=== PATIENT | female | born 2000 | race Caucasian/White ===

== ENCOUNTER 2023-06-17 14:48 | Outpatient (REF) | payer MEDICAID, SELFPAY ==
[2023-06-17 18:37] LABS: Cholesterol 135 mg/dL; HDL Cholesterol 57 mg/dL; LDL Cholesterol Calculated 70 mg/dl; Triglycerides 41 mg/dL
[2023-06-18 02:34] LABS: CT PCR NOT DETECTED (Not Detect.); NG PCR NOT DETECTED (Not Detect.)
[2023-06-18 07:47] LABS: Syphilis Screen Nonreactive (Nonreactive)
[2023-06-18 09:01] LABS: HBsAGNum1 0.44 S/CO (0.00-0.99); Hepatitis B Surface Antigen Negative (Negative); ~HepC Num1 0.13 S/CO (0.00-0.79); ~Hepatitis C Antibody Nonreactive (Nonreactive)
== END 2023-06-17 14:49 | disposition home or self-care (01) ==
LOC: HO.CHCLDS 14:48
PROVIDERS: Visit Provider Family Medicine
DX: Z11.3 Encounter for screening for infections with a predominantly sexual mode of transmission (principal); Z11.4 Encounter for screening for human immunodeficiency virus [HIV]; Z13.220 Encounter for screening for lipoid disorders
CPT/HCPCS: 0353U; 36415; 80061; 86780; 86803; 87340; 87536

== ENCOUNTER 2023-08-06 13:14 | Outpatient (REF) | payer MEDICAID, SELFPAY ==
[2023-08-07 05:23] LABS: CT PCR NOT DETECTED (Not Detect.); NG PCR NOT DETECTED (Not Detect.)
[2023-08-07 15:37] LABS: BV Int Neg Control Negative (Negative); BV Int Pos Control Positive (Positive)
== END 2023-08-06 13:15 | disposition home or self-care (01) ==
LOC: HO.CHCLNP 13:14
PROVIDERS: Visit Provider Family Medicine
DX: N76.0 Acute vaginitis (principal)
CPT/HCPCS: 0353U; 81513; 87480; 87510; 87660

== ENCOUNTER 2023-10-07 18:02 | Outpatient (REF) | payer MEDICAID, SELFPAY ==
[2023-10-30 09:38] LABS: HPV 16 RNA NOT DETECTED (NOT DETECTED); HPV mRNA E6/E7 rflx Detected (Not Detected)
== END 2023-10-07 18:03 | disposition home or self-care (01) ==
LOC: HO.CHCLNP 18:02
PROVIDERS: Visit Provider Family Medicine
DX: Z12.4 Encounter for screening for malignant neoplasm of cervix (principal); Z11.51 Encounter for screening for human papillomavirus (HPV)
CPT/HCPCS: 87624; 87625; 88142

== ENCOUNTER 2023-10-19 13:30 | Outpatient (REF) | payer MEDICAID, SELFPAY ==
[2023-10-19 17:19] LABS: CT PCR NOT DETECTED (Not Detect.); NG PCR NOT DETECTED (Not Detect.)
== END 2023-10-19 13:31 | disposition home or self-care (01) ==
LOC: HO.CHCLNP 13:30
PROVIDERS: Visit Provider Advanced Practice Midwife
DX: Z11.3 Encounter for screening for infections with a predominantly sexual mode of transmission (principal)
CPT/HCPCS: 0353U

== ENCOUNTER 2023-10-22 13:40 | Outpatient (REF) | payer MEDICAID, SELFPAY ==
[2023-10-22 15:11] LABS: Alanine Aminotransferase 10 U/L (0-31); Albumin Level 4.3 g/dL (3.5-5.0); Alkaline Phosphatase 49 U/L (39-117); Aspartate Amino Transferase 15 U/L (5-31); Bilirubin Direct 0.1 mg/dL (0.0-0.5); Bilirubin Total 0.3 mg/dL (0.0-1.0); Lipase 26 U/L (8-78); Total Protein 7.5 g/dL (6.5-8.0)
[2023-10-22 18:33] LABS: Amylase 62 U/L (28-100)
[2023-10-23 07:59] LABS: HCG Tumor Marker <5 mIU/mL
== END 2023-10-22 13:41 | disposition home or self-care (01) ==
LOC: HO.CHCLDS 13:40
PROVIDERS: Visit Provider Registered Nurse
DX: R10.11 Right upper quadrant pain (principal)
CPT/HCPCS: 36415; 80076; 82150; 83690; 84702

== ENCOUNTER 2023-11-23 14:52 | Outpatient (REF) | payer MEDICAID, SELFPAY ==
[2023-11-24 15:31] LABS: BV Int Neg Control Negative (Negative); BV Int Pos Control Positive (Positive)
== END 2023-11-23 14:53 | disposition home or self-care (01) ==
LOC: HO.CHCLNP 14:52
PROVIDERS: Visit Provider Advanced Practice Midwife
DX: N89.8 Other specified noninflammatory disorders of vagina (principal)
CPT/HCPCS: 87480; 87510; 87660

== ENCOUNTER 2024-02-02 08:55 | Outpatient (REF) | payer MEDICAID, SELFPAY ==
[2024-02-04 19:53] LABS: C. trachomatis RNA TMA NOT DETECTED (NOT DETECTED); N. gonorrhoeae RNA TMA NOT DETECTED (NOT DETECTED)
== END 2024-02-02 08:56 | disposition home or self-care (01) ==
LOC: HO.HHCLNP 08:55
PROVIDERS: Visit Provider Family Medicine
DX: R10.2 Pelvic and perineal pain (principal)
CPT/HCPCS: 36415; 81513; 87491; 87591

== ENCOUNTER 2024-03-20 10:33 | Outpatient (REF) | payer MEDICAID, SELFPAY ==
--- NOTE | ~2024-03-20 | US_ITS ---
EXAMINATION: US PELVIS CLINICAL INFORMATION: Pelvic pain, last menstrual period 02/06/2024. COMPARISON: None available. TECHNIQUE: Ultrasound of the pelvis is performed using both transabdominal and transvaginal transducers along with Doppler. Transvaginal imaging is performed due to inadequate visualization transabdominally. Limited visualization due to bowel gas. FINDINGS: The uterus measures 7.9 x 3.3 x 4.6 cm and is anteverted. Endometrial thickness is 7 mm. Right ovary measures 3.9 x 3.0 x 2.4 cm, volume 14.7 mm. 2.3 x 2.0 x 2.3 cm right ovarian cyst is likely simple. 1.8 x 1.7 x 1.6 cm mildly complex right ovarian cyst with mural nodularity and low level internal echoes is somewhat difficult to characterize due to bowel gas. Left ovary measures 3.4 x 1.6 x 2.2 cm, volume 6.3 mL and is unremarkable. Small amount of free fluid. US/US pelvic and transvaginal IMPRESSION: 1. Endometrial thickness is 7 mm. 2. Right ovarian 2.3 cm cyst is likely simple. 3. Right ovarian 1.8 cm mildly complex cyst with mural nodularity and low level internal echoes is somewhat difficult to characterize due to bowel gas. Recommend follow up ultrasound in 6-8 weeks. 4. Small amount of free fluid.
== END 2024-03-20 10:34 | disposition home or self-care (01) ==
LOC: HO.US 10:33
PROVIDERS: Visit Provider Family Medicine
DX: R10.2 Pelvic and perineal pain (principal)
CPT/HCPCS: 76830; 76856

== ENCOUNTER 2024-06-15 10:15 | Emergency (ER) | payer MEDICAID, SELFPAY ==
[2024-06-15 10:20] VITALS: BP 122/77; PULSE 107; RESP 16; TEMP 37.1; O2SAT 98; BMI 19.2
--- OUTSIDE RECORDS SUMMARY | 2024-06-15 10:42 | XMS_ITS | Continuity of Care Document ---
Author Organization [facility] ter Address [address] [place] [id number]- Care Team Providers Care Canine Enforcement Officer Name Role Phone Not on Staff, PCP Primary Care Physician Unavail able Encounter [facility] Date(s): 10/07/22 - 10/07/[address] [address]- Encounter Diagnosis Lightheadedness(Final) - 10/07/22 Discharge Disposition: A-D/C Home Attending Physician: Lou Vargas MD Admitting Physician: Lou Vargas MD Referring Physician: Not on Staff, Referring MD Allergies, Adverse Reactions, Alerts No Known Allergies Medications ibuprofen 600 mg oral tablet 600 mg, 1, tablet, By Mouth, 3 times a day, PRN, then as needed, # 30 tablet, Refills 0, Tot. Refills 0, Maintenance, Pain , Mild, 07/20/19 13:52:47 EDT, Print Requisition Start Date: 07/20/19 Stop Date: 07/23/19 Status: Ordered KlonoPIN 0.5 mg oral tablet 0.5 tablet = 0.25 mg, By Mouth, Daily at bedtime, PRN Sleep, 0 Refills, Maintenance, 07/20/19 13:36:22 EDT, Tablet Start Date: 07/20/19 Status: Ordered Vital Signs Most recent to oldest [Reference Range]: 1 2 3 Weight 43.6 kg (10/07/22 7:53 PM) Oxygen Saturation [94-100 %] 98 % (10/07/22 11:48 PM) 100 % (10/07/22 9:45 PM) 100 % (10/07/22 8:54 PM) Pulse Rate [55-90 bpm] 90 bpm (10/07/22 11:48 PM) 84 bpm (10/07/22 9:45 PM) 84 bpm (10/07/22 8:54 PM) Blood Pressure [90-138/55-84 mm Hg] 109/75mm Hg (10/07/22 11:48 PM) 128/83mm Hg (10/07/22 9:45 PM) 114/88mm Hg (10/07/22 7:53 PM) Respiratory Rate [16-30 br/min] 16 br/min (10/07/22 11:48 PM) 16 br/min (10/07/22 9:45 PM) 18 br/min (10/07/22 8:54 PM) Temperature [96.8-100.4 DegF] 98.8 DegF (10/07/22 7:53 PM) Mode of Delivery (Oxygen) Room air (10/07/22 11:48 PM) Room air (10/07/22 9:45 PM) Room air (10/07/22 8:54 PM) Blood pressure sites Arm, left (10/07/22 11:48 PM) Arm, left (10/07/22 9:45 PM) Arm, left (10/07/22 7:53 PM) Temperature Route Oral (10/07/22 7:53 PM) Weight Obtained Via Patient/family state d (10/07/22 7:53 PM) Social History Social History Type Response Smoking Status Former smoker, quit more than 30 days ago entered on: 03/29/22 Sex Patient Care team information Care Team Personnel Name: Not on Staff, PCP Position: [facility] Physician (General Medicine) Member Role: PCP Name: Carly Howe RN Position: [facility] ED RN W/OE and Tasks Member Role: Patient Care Provider Name: Travis Martinez DO Position: [facility] Resident Member Role: ED Resident Address: Address: [address] [place] [address] Name: Lou Vargas MD Position: [facility] Resident Member Role: Admitting Physician Address: Address: [address] [place] [address]
--- NOTE | 2024-06-15 11:30 | ED.GENADULT ---
HPI - General Adult General Chief complaint: General Medical Stated complaint: strep+ Time Seen by Provider: 06/15/24 10:55 Source: patient Mode of arrival: ambulatory Limitations: no limitations History of Present Illness ED Provider: Tangela YO HPI narrative: 23-year-old female recently diagnosed with strep throat a few days ago on antibiotics x2 days presenting with worsening sore throat, fatigue, malaise, myalgias. Patient reports she was seen at urgent care a few days ago and she was prescribed amoxicillin 500 mg which she is taking twice daily, she is having pain in her throat and into her neck, she was told to come in by the [facility] for further evaluation. Denies shortness of breath, changes in voice, nausea, vomiting, chest pain, headache, vision changes, dizziness, weakness. Related Data Previous Rx's ?Medication ?Instructions ?Recorded Magic Mouthwash 5 ml PO TID #240 mL 06/15/24 Diphen/Lido/Antacid 1:1:1 240 mL suspension amoxicillin 875 mg-potassium 1 tab PO BID 10 days #20 tabs 06/15/24 clavulanate 125 mg tablet prednisone 20 mg tablet 40 mg (2 x 20 mg) PO DAILY 5 days 06/15/24 #10 tabs Allergies Allergy/AdvReac Type Severity Reaction Status Date / Time No Known Allergies Allergy Verified 06/15/24 10:20 Review of Systems Review of Systems: Yes all other systems are reviewed and are negative PMFSH Past Medical History Attestation statement: The following information was validated with the patient. Source: old records reviewed and nursing notes reviewed Social History Social History Advance Directives: No Advance Directives Information Provided: No Do you have a plan to hurt others: No Plan Physical Exam ED Vital Signs: Vital Signs - 24 hr 06/15/24 10:20 06/15/24 12:08 Temperature 98.7 F 98.1 F Pulse Rate 107 H 96 Respiratory Rate 16 16 Blood Pressure 122/77 118/72 Pulse Oximetry 98 98 Oxygen Delivery Method Room Air Room Air BMI result Body Mass Index 19.2 vss Appearance: Alert.? Oriented X3.? No acute distress.? Head: Normocephalic, atraumatic, no step-offs or deformities Eyes: Pupils equal, round and reactive to light.? ENT: Pharynx with bilateral tonsillar hypertrophy equal on both sides, exudates bilaterally. Uvula midline. No visualized abscess. Speaking in full sentences controlling secretions well.? Neck: Normal inspection.? Neck supple.?+ bilateral anterior cervical adenopathy CVS: Normal heart rate and rhythm.? Pulses normal.? Respiratory: No respiratory distress.? Breath sounds normal.? Abdomen: Soft and nontender.? Skin: Skin warm and dry.? Normal skin color.? Normal skin turgor.? Extremities: No lower extremity edema.? No calf ttp. 5/5 strength to bilateral upper and lower extremities Neuro: Oriented X 3.? No motor deficit.? No sensory deficit. CN 2-12 intact Course Reevaluation(s) Reevaluation #1: CBC unremarkable. There is a neutrophil predominance likely secondary to acute pharyngitis/strep throat. Patient has known strep throat diagnosed a few days ago. Chemistry unremarkable. CRP 1.33 likely secondary to acute pharyngitis/strep. Monospot negative. Patient feeling better after meds. Will have her return with new or worsening symptoms will switch her from amoxicillin to Augmentin. Educated patient on diagnosis and treatment plan, answered all question, patient verbalizes understanding. At this time patient will be discharged home, advised to return with new or worsening symptoms. Educated on worrisome signs and symptoms and when to return. At this time I feel comfortable discharge home. Time: 12:54 Medications Administered Discontinued Medications Generic Name Dose Route Start Last Admin Trade Name Freq PRN Reason Stop Dose Admin Dexamethasone Sodium Phosphate 10 mg 06/15/24 11:16 06/15/24 11:48 Dexamethasone Sod Phosphate 10 Mg/Ml Vial IVPUSH 06/15/24 11:17 10 mg ONCE ONE Administration Lidocaine HCl 10 ml 06/15/24 11:06 06/15/24 11:48 Lidocaine Hcl Viscous 2 % 15 Ml Solution MUCOUS MEM 06/15/24 11:07 10 ml ONCE ONE Administration Medical Decision Making Medical Decision Making MDM Narrative: 23-year-old female presents with sore throat going on for the past few days has been on antibiotics x2 days. Physical exam with anterior chain adenopathy bilaterally, bilateral tonsillar hypertrophy with exudate, no abscess. History and physical exam concerning for strep throat and possibly mono versus viral illness. Unlikely peritonsillar abscess, retropharyngeal abscess, epiglottitis, acute threat to airway, leimeers syndrome Plan labs, medication Differential Diagnosis Differential Diagnoses: The differential diagnosis associated with the presentation includes History and physical exam concerning for strep throat and possibly mono versus viral illness. Unlikely peritonsillar abscess, retropharyngeal abscess, epiglottitis, acute threat to airway, leimeers syndrome Admission/Observation Consideration of admission/observation: Escalation of care including admission/observation considered possible Lab Data MDM Lab Attestation statement: I reviewed the patient's lab results. 06/15/24 11:40 06/15/24 11:40 Labs: Lab Results 06/15/24 Range/Units 11:40 WBC 8.1 (4.8-10.8) X10*3/uL RBC 4.69 (4.20-5.50) X10*6/uL Hgb 14.9 (12.0-16.0) g/dl Hct 42.5 (37.0-47.0) % MCV 90.6 (80.0-98.0) fL MCH 31.8 (27.0-33.0) pg MCHC 35.1 H (31.0-35.0) g/dl RDW 12.1 (11.0-16.0) % Plt Count 220 (160-400) X10*3/uL MPV 10.3 (9.4-12.3) fL Immature Gran % (Auto) 0.2 (0.0-0.4) % Neut % (Auto) 82.6 H (45-73) % Lymph % (Auto) 9.5 L (20-40) % Mckean % (Auto) 7.4 (2-11) % Eos % (Auto) 0.1 (0-4) % Baso % (Auto) 0.2 (0-2) % Lymph # (Auto) 0.8 L (1.2-4.9) X10*3/uL Mckean # (Auto) 0.6 (0.1-1.2) X10*3/uL Eos # (Auto) 0.0 (0.0-0.4) X10*3/uL Baso # (Auto) 0.0 (0.0-0.2) X10*3/uL Abs Immat Gran (auto) 0.02 (0.00-0.03) X10*3/uL Absolute Neuts (auto) 6.7 (2.0-8.3) x10*3/uL Absolute Nucleated RBC 0.000 (0.0-0.012) X10*3/uL Nucleated RBC % (auto) 0.0 (0.0-0.2) /100WBC ESR 9 (0-20) MM/HR Sodium 137 (135-145) mmol/L Potassium 3.9 (3.3-5.1) mmol/L Chloride 107 (96-108) mmol/L Carbon Dioxide 22 (22-29) mmol/L Anion Gap 12 (12-20) BUN 11 (9-16) mg/dL Creatinine 0.72 (0.5-1.4) mg/dL Estim Creat Clear Calc 92.9 Estimated GFR > 60 Random Glucose 87 (60-115) mg/dL Calcium 9.5 (8.4-10.2) mg/dL Total Bilirubin 0.6 (0.0-1.0) mg/dL AST 15 (5-31) U/L ALT 10 (0-31) U/L Alkaline Phosphatase 56 (39-117) U/L C-Reactive Protein 1.33 H (< or = 0.50) mg/dL Total Protein 7.6 (6.5-8.0) g/dL Albumin 4.2 (3.5-5.0) g/dL Monoscreen Negative (Negative) Prescription Management I considered prescription management with: Antibiotic Critical Care Time Critical Care Time Critical Care Time: Yes Total Critical Care Time: 35 Attestation: I attest to this time spent taking care of the patient, obtaining history, physical, reviewing labs, imaging, speaking to my attending, specialist or hospitalist. Discharge Plan Discharge Clinical Impression: Strep throat Patient Disposition: Home, Self-Care Instructions: Pharyngitis (ED), Strep Throat (ED) Additional Instructions: Take your medications as prescribed. If you were prescribed antibiotics today, it is important that you take your medication to their entirety, do not skip any doses, do not finish them early. Follow-up with your primary care provider this week. Return to the emergency department with new or worsening symptoms. Such as fevers, chills, chest pain, shortness of breath, nausea, vomiting, dizziness, headache, vision changes, lethargy In case of emergency call 911 Prescriptions: New prednisone 20 mg tablet 40 mg PO DAILY 5 Days Qty: 10 0RF amoxicillin-pot clavulanate 875-125 mg tablet 1 tab PO BID 10 Days Qty: 20 0RF Magic Mouthwash Diphen/Lido/Antacid 1:1:1 240 mL suspension 5 ml PO TID Qty: 240 0RF Rx Instructions: Lidocaine Viscous 2 % 80mL; diphenhydramine 12.5 mg/5 mL 80mL; aluminum-mag hydrox-simeth [id number]/5mL 80mL Swish and spit, do not swallow Referrals: Janette Posey MD [Primary Care Provider] - 2 days Stand Alone Forms: Work/School Release Interventions: ED Discharge Assessment Last Done: 06/15/24 12:08 Discharge Date/Time: 06/15/24 12:08 Print Language: Ukrainian
[2024-06-15 11:44] LABS: MANUAL DIFF FLAG NO
[2024-06-15 11:47] LABS: Basophils Percent Auto 0.2 % (0-2); Eosinophils Percent Auto 0.1 % (0-4); Hematocrit 42.5 % (37.0-47.0); Hemoglobin 14.9 g/dl (12.0-16.0); Imm Gran Abs Auto 0.02 X10*3/uL (0.00-0.03); Imm Gran Pct Auto 0.2 % (0.0-0.4); Lymphocytes Absolute Auto 0.8 X10*3/uL (1.2-4.9); Lymphocytes Percent Auto 9.5 % (20-40); Mean Corpuscular HGB Conc 35.1 g/dl (31.0-35.0); Mean Corpuscular Hemoglobin 31.8 pg (27.0-33.0); Mean Corpuscular Volume 90.6 fL (80.0-98.0); Mean Platelet Volume 10.3 fL (9.4-12.3); Monocytes Absolute Auto 0.6 X10*3/uL (0.1-1.2); Monocytes Percent Auto 7.4 % (2-11); Neutrophils Absolute Auto 6.7 x10*3/uL (2.0-8.3); Neutrophils Percent Auto 82.6 % (45-73); Platelet Count 220 X10*3/uL (160-400); Red Blood Count 4.69 X10*6/uL (4.20-5.50); Red Cell Distribution Width 12.1 % (11.0-16.0); White Blood Count 8.1 X10*3/uL (4.8-10.8)
[2024-06-15] MEDS: Lidocaine HCl Viscous 2 % 15 ML SOLUTION 10 ML MUCOUS MEM (11:48)
[2024-06-15] MEDS: dexAMETHasone sod phosphate 10 MG/ML VIAL IVPUSH (11:48)
--- NOTE | 2024-06-15 11:50 | PC.NURSE ---
pt medicated per order
[2024-06-15 12:03] LABS: Alanine Aminotransferase 10 U/L (0-31); Albumin Level 4.2 g/dL (3.5-5.0); Alkaline Phosphatase 56 U/L (39-117); Anion Gap 12 (12-20); Aspartate Amino Transferase 15 U/L (5-31); Bilirubin Total 0.6 mg/dL (0.0-1.0); Blood Urea Nitrogen 11 mg/dL (9-16); C Reactive Protein 1.33 mg/dL (< or = 0.50); Calcium 9.5 mg/dL (8.4-10.2); Carbon Dioxide 22 mmol/L (22-29); Chloride 107 mmol/L (96-108); Creatinine Clr Calc Pharmacy 92.9; Estimated Glomerular Filt Rate > 60; Glucose Random 87 mg/dL (60-115); Monotest Negative (Negative); Potassium 3.9 mmol/L (3.3-5.1); Sodium 137 mmol/L (135-145); Total Protein 7.6 g/dL (6.5-8.0)
--- NOTE | 2024-06-15 12:07 | PC.NURSE ---
pt medicated per order for 5/10 sore throat
[2024-06-15 12:08] VITALS: BP 118/72; PULSE 96; RESP 16; TEMP 36.7; O2SAT 98
[2024-06-15 12:21] LABS: Erythrocyte Sedimentation Rate 9 MM/HR (0-20)
== END 2024-06-15 12:08 | disposition home or self-care (01) ==
PROVIDERS: Physician Assistant; Emergency Provider Emergency Medicine; PCP Family Medicine
DX: J02.0 Streptococcal pharyngitis (principal); Z79.899 Other long term (current) drug therapy
CPT/HCPCS: 36415; 80053; 85025; 85652; 86140; 86308; 99282; 99283; J1100

== ENCOUNTER 2024-07-10 09:39 | Outpatient (REF) | payer MEDICAID, SELFPAY ==
[2024-07-10 16:12] LABS: CT PCR NOT DETECTED (Not Detect.); NG PCR NOT DETECTED (Not Detect.)
[2024-07-11 08:48] LABS: Syphilis Screen Nonreactive (Nonreactive)
[2024-07-11 08:55] LABS: HIV AB/AG Nonreactive (Nonreactive); HIV Num 1 0.06 S/CO (0.00-0.99); ~HepC Num1 0.21 S/CO (0.00-0.79); ~Hepatitis C Antibody Nonreactive (Nonreactive)
== END 2024-07-10 09:40 | disposition home or self-care (01) ==
LOC: HO.CHCLDS 09:39
PROVIDERS: Visit Provider Family Medicine
DX: Z11.3 Encounter for screening for infections with a predominantly sexual mode of transmission (principal)
CPT/HCPCS: 36415; 86780; 86803; 87389; 87491; 87591

== ENCOUNTER 2024-07-13 16:29 | Outpatient (REF) | payer MEDICAID, SELFPAY ==
[2024-07-13 18:41] LABS: Bacterial Vaginosis PCR POSITIVE (Negative); Candida Group PCR NOT DETECTED (Not Detect); Candida glab krusei PCR NOT DETECTED (Not Detect); Trichomonas vaginalis PCR NOT DETECTED (Not Detect)
== END 2024-07-13 16:30 | disposition home or self-care (01) ==
LOC: HO.CHCLNP 16:29
PROVIDERS: Visit Provider Family Medicine
DX: N76.0 Acute vaginitis (principal)
CPT/HCPCS: 0352U

== ENCOUNTER 2024-11-07 15:12 | Outpatient (REF) | payer MEDICAID, SELFPAY ==
[2024-11-08 08:25] LABS: HIV AB/AG Nonreactive (Nonreactive); HIV Num 1 0.06 S/CO (0.00-0.99)
== END 2024-11-07 15:13 | disposition home or self-care (01) ==
LOC: HO.CHCLDS 15:12
PROVIDERS: Visit Provider Internal Medicine
DX: J02.9 Acute pharyngitis, unspecified (principal)
CPT/HCPCS: 36415; 87389; 87491; 87591

== ENCOUNTER 2025-03-05 18:08 | Outpatient (REF) | payer MEDICAID, SELFPAY ==
--- OUTSIDE RECORDS SUMMARY | 2025-03-05 18:41 | XMS_ITS | Data Portability ---
Author Organization [place] - [facility], Allergy Address [address] [facility] [address] [place] [address] Care Team Providers Care Body Specialist Name Role Phone KING SALAZAR Primary Care Provider [phone] Assessment No assessment recorded. Plan of Treatment Reminders Order Date Submit Date Provider Last Modified By Organization Details Last Modified Time Details Appointments None recorded. Lab None recorded. Referral None recorded. Procedures None recorded. Surgeries tonsillect damian (SURG) 2024 025 [email or web address] Not available 12:31:51 Imaging None recorded. Medication Orders None recorded. Patient TargetsNo targets recorded. Patient InstructionsNo instructions recorded. Reason for Referral None Reported. Results Created Date Observation Date Name Description Value Unit Range Abnormal Flag Note LastModifiedBy Organization Detail LastModifiedTime Result Notes None recorded. Problems Name Problem SNOMED Code Status Onset Date Resolution Date Notes Provider Name and Address Organization Details Recorded Time Recurrent acute streptococc al tonsillitis 8985612000190 9109 Active 2024 AILEEN Martinez MD [address] [place] [address], [phone], [facility] - [facility] 5 11:52:48 Chronic tonsillitis 21436368 Active 2024 AILEEN Martinez MD [address] [place] [address], [phone], [facility] - [facility] 5 11:58:23 Problem Notes None recorded. Procedures Surgical History Date Name Laterality Status Provider Name and Address Organization Details Recorded Time 12/26/19 25 tonsillectomy completed AILEEN HANLEY MD [address], [address], [place] - [facility] 12/26/2024 14:35:25 12/26/19 25 TONSILLECTOMY (SURG) completed Jareth Rice [place] - [facility] 12/26/2024 16:01:27 Imaging Results None recorded. Procedure Notes None recorded. Medical Equipment None Reported. Medications Name Sig Start Date Stop Date Status Note LastModified by Organization Details LastModified Time amoxicillin 500 mg capsule TAKE 1 CAPSULE BY MOUTH TWICE A DAY FOR 10 DAYS active Not Available Not Available No t Available acetaminophe n 325 mg tablet TAKE 2 TABLETS EVERY 6 HOURS BY ORAL ROUTE NEEDED FOR 7 DAYS, FOR PAIN. active Not Available Not Available No t Available fluconazole 150 mg tablet TAKE 1 TABLET (150 MG) BY MOUTH EVERY 3RD (THIRD) DAY. active Not Available Not Available No t Available prednisone 20 mg tablet TAKE 2 TABLETS BY MOUTH ONCE DAILY FOR 5 DAYS active Not Available Not Available No t Available oxycodone 5 mg/5 mL oral solution TAKE 4ML BY MOUTH EVERY 6 HOURS NEEDED FOR PAIN FOR 5 DAYS active Not Available Not Available No t Available metronidazol e 500 mg tablet TAKE 1 TABLET BY MOUTH 2 TIMES DAILY FOR 7 DAYS active Not Available Not Available N ot Available ofloxacin 0.3 % ear drops ADMINISTER 5 DROPS INTO THE RIGHT EAR 2 TIMES DAILY FOR 5 DAYS. active Not Available Not Available Not Available diclofenac potassium 50 mg tablet TAKE 1 TABLET BY MOUTH 3 TIMES DAILY active Not Available Not Available Not Available ibuprofen 600 mg tablet TAKE 1 TABLET BY MOUTH THREE TIMES A DAY FOR 5 DAYS active Not Available Not Available N ot Available ibuprofen 100 mg/5 mL oral suspension TAKE 30 ML BY MOUTH 4 TIMES PER DAY FOR 7 DAYS active Not Available Not Available No t Available amoxicillin 875 mg-potassium clavulanate 125 mg tablet TAKE 1 TABLET BY MOUTH TWICE DAILY FOR 10 DAYS active Not Available Not Available No t Available Monistat 3 4 % (200 mg)-2 %(9 gram)vaginal pack,prefil appl and cream INSERT 1 EACH INTO THE VAGINA AT BEDTIME. active Not Available Not Available Not Available Tylenol 325 mg capsule Take 2 capsules every 6 hours by oral route as needed for 7 days, for pain. 2024 active Not Available Not Available Not Avai lable Vitals Date Recorded Body height Body mass index (BMI) Body weight Provider Name and Address Organization Details Last Updated DateTime 12/19/2024 157.48 cm 19.2 kg/m2 93828.2 g Marc Balderrama [place] - [facility] 12/19/2024 11:52:23 Social History None recorded. Functional Status None recorded. Mental Status None recorded. Family History Nothing Reported. Medical History No medical history recorded. Gynecological HistoryNo gynecological history recorded. Obstetrics History GPAL:G 0 P 0 0 0 0 Past Encounters Encounter ID Performer Location Encounter Start Date Encounter Closed Date Diagnosis/Indication Diagnosis SNOMED-CT Code Diagnosis ICD10 Code Diagnosis Note [id number] AILEEN HANLEY MD [facility] [address] [place] [address] 12/19/2024 11:28:14 12/19/2024 11:57:48 Recurrent acute streptococcal tonsillitis [id number] 1930913 J03.01 The patient has recurrent strep tonsilliti s and is indicated for tonsillect damian. After a detailed discussion of the risks, benefits and alternativ es to tonsillect damian the patient and family has agreed to proceed. Specifical ly, the risk of postoperat ortega hemorrhage with return to the operating room, dehydratio n and risk of hospital readmissio n, throat pain, voice change and or swallowing problems were discussed. The patient will return the day of surgery. Health Concerns Section Related Observation LastModified by Organization Detai ls LastModified Time None Recorded Concern Status LastModified by Organization Details LastModified Time None Recorded Advance Directives Directive None Recorded Payers Encounter Date Sequence Insurance Name Policy Number Policy Soto Covered Member ID Soto Member ID Guarantor Name 12/19/2024 1 [place] [facility] Melinda Oconnor [id number] Miley Oconnor Notes Date Note Type Note Provider Name and Address Organization Details Recorded Time 12/19/2024 text/html She has a history of recurring throat infections. She has had both mono and strep in the last year. For the past 3 years she has had strep throat about 4 times per year. Her right tonsil has remained swollen since her last infection. She does not snore. AILEEN HANLEY MD [address] [place] [address], [place], [phone], [facility] - [facility] 12/19/2024 12:01:03 OBGyn Episode No OBEpisode recorded.
--- OUTSIDE RECORDS SUMMARY | 2025-03-05 18:41 | XMS_ITS | Encounter Summary ---
Author Organization [employer] Address [address] [place] [address] Care Team Providers Care Jewelry Inspector Name Role Phone Janette Posey MD Primary Care Provider [phone] Encounter Details Date Type Department Care Team (Latest Contact Info) Description 03/05/2025 Travel Social History Tobacco Use Types Packs/Day Years Used Date Smoking Tobacco: Never Passive Smoke Exposure: Current Smokeless Tobacco: Never Alcohol Use Standard Drinks/Week Comments Never 0 (1 standard drink = 0.6 oz pur e alcohol) Depression Answer Date Recorded Patient Health Questionnaire-9 Score 0 07/10/2024 Patient Health Questionnaire-9 Score 0 07/10/2024 Last PHQ-9: Questionnaire Data Not on file 0 07/10/2024 Housing Stability Answer Date Recorded What is your housing situation today? I have ambreen sunshine 07/05/[address] you li ve. Do you have problems with any of the following? None of the above 07/05/2024 Food Insecurity Answer Date Recorded Within the past 12 months, y ou worried that your food would run out before you got money to buy more: Never True 07/05/2024 Within the past 12 months,th e food you bought just didn't last and you didn't have enough money to get more: Never True Transportation Answer Date Recorded In the past 12 months, has l ack of transportation kept you from medical appts, meetings, work or from getting things needed for daily living? No 07/05/2024 Utilities Answer Date Recorded In the past 12 months, has t he electric, gas, oil or water company threatened to shut off services in your home? No 07/05/2024 Depression Answer Date Recorded Patient Health Questionnaire-2 Score 0 07/10/2024 Internet Access Answer Date Recorded Internet Access Q1 Yes 07/24/2024 Internet Access Q2 Not on file 07/24/2024 Comments No Sex and Gender Information Value Date Recorded Sex Assigned at Female 09/21/2022 10:17 AM EDT Legal Sex Female 10:17 AM EDT Gender Identity Female 09/21/2022 10:17 AM EDT Sexual Orientation Bisexual 09/21/2022 10 :17 AM EDT documented as of this encounter Plan of Treatment Upcoming Encounters Date Type Department Care Team (Late st Contact Info) Description 03/20/2025 1:15 PM EDT Procedure Visit [facility] [address] [place] [address] Nai Whitmore CNM [address] [place] [address] documented as of this encounter Visit Diagnoses Not on filedocumented in this encounter Additional Health Concerns Assessment Noted Time PHQ-9 Depression Total Score: 0 07/10/20 24 9:29 AM EDT documented as of this encounter Care Teams Jewelry Inspector Relationship Specialty Start Date End Date Janette Posey MD [address] [place] [address] PCP - General Family Medicine 02/18/22 documented as of this encounter
--- OUTSIDE RECORDS SUMMARY | 2025-03-05 18:41 | XMS_ITS | Encounter Summary ---
Author Organization [employer] Address [address] [facility] 7[address] [place] [address] Care Team Providers Care Berry Planter Name Role Phone Janette Posey MD Primary Care Provider [phone] Reason for Visit * Reason Onset Date Comments Appointment Request 09/23/2023 Encounter Details Date Type Department Care Team ([facility] Contact Info) Description 09/23/2023 Telephone [facility] CHC MED & PEDS [address] [place] [address] Janette Posey MD [address] [place] [address] Appointment Request Social History Tobacco Use Types Packs/Day Years Used Date Smoking Tobacco: Former Cigarettes Q uit: 03/30/2023 Passive Smoke Exposure: Current Smokeless Tobacco: Never Alcohol Use Standard Drinks/Week Comments Never 0 (1 standard drink = 0.6 oz pur e alcohol) Depression Answer Date Recorded Patient Health Questionnaire-9 Score 2 06/17/2023 Housing Stability Answer Date Recorded What is your housing situation today? I have ambreen sunshine 09/06/[address] you li ve. Do you have problems with any of the following? None of the above 09/06/2023 Food Insecurity Answer Date Recorded Within the past 12 months, y ou worried that your food would run out before you got money to buy more: Never True 09/06/2023 Within the past 12 months,th e food you bought just didn't last and you didn't have enough money to get more: Never True Transportation Answer Date Recorded In the past 12 months, has l ack of transportation kept you from medical appts, meetings, work or from getting things needed for daily living? No 09/06/2023 Utilities Answer Date Recorded In the past 12 months, has t he electric, gas, oil or water company threatened to shut off services in your home? No 09/06/2023 Depression Answer Date Recorded Patient Health Questionnaire-2 Score 1 06/17/2023 Comments Unknown Sex and Gender Information Value Date Recorded Sex Assigned at Female 09/21/2022 10:17 AM EDT Legal Sex Female 10:17 AM EDT Gender Identity Female 09/21/2022 10:17 AM EDT Sexual Orientation Bisexual 09/21/2022 10 :17 AM EDT documented as of this encounter Miscellaneous Notes * Telephone Encounter - Malika Beavers - 09/23/2023 3:38 PM EDT Tc from pt requesting a Pap Smear appt Shop Mechanic attempted to schedule no Pap Smear slots available. documented in this encounter Plan of Treatment Upcoming Encounters Date Type Department Care Team (Late st Contact Info) Description 03/20/2025 1:15 PM EDT Procedure Visit [facility] MEDICINE [address] [place] [address] Nai Whitmore CNM [address] [place] [address] documented as of this encounter Visit Diagnoses Not on filedocumented in this encounter Additional Health Concerns Assessment Noted Time PHQ-9 Depression Total Score: 2 06/17/20 23 2:11 PM EDT documented as of this encounter Care Teams Berry Planter Relationship Specialty Start Date End Date Janette Posey MD [address] [place] [address] PCP - General Family Medicine 02/18/22 documented as of this encounter
--- OUTSIDE RECORDS SUMMARY | 2025-03-05 18:41 | XMS_ITS | Encounter Summary ---
Author Organization [employer] Address [address] [facility] [address] [place] [address] Care Team Providers Care Market Risk Specialist Name Role Phone Janette Posey MD Primary Care Provider [phone] Reason for Visit * Reason Onset Date Comments Letter for School/Work 11/19/2023 Encounter Details Date Type Department Care Team ([facility] st Contact Info) Description 11/19/2023 Telephone [facility] CHC MED & PEDS [address] [place], [place] [id number] Janette Posey MD [address] [place] [address] Letter for School/Work Social History Tobacco Use Types Packs/Day Years [...] Patient Health Questionnaire-2 Score 1 06/17/2023 Comments No Sex and Gender Information Value Date Recorded Sex Assigned at Female 09/21/2022 10:17 AM EDT Legal Sex Female 10:17 AM EDT Gender Identity Female 09/21/2022 10:17 AM EDT Sexual Orientation Bisexual 09/21/2022 10 :17 AM EDT documented as of this encounter Miscellaneous Notes * Telephone Encounter - Malcolm Yong - 11/19/2023 9:17 AM EST Tc from pt stating they need excuse letter from work regarding ER visit. Any questions please contact pt at [phone]. documented in this encounter Plan of Treatment Upcoming Encounters Date Type Department Care Team (Late st Contact Info) Description 03/20/2025 1:15 PM EDT Procedure Visit [facility] MEDICINE [address] [place] [address] Nai Whitmore CNM [address] [place] [address] documented as of this encounter Visit Diagnoses Not on filedocumented in this encounter Additional Health Concerns Assessment Noted Time PHQ-9 Depression Total Score: 2 06/17/20 23 2:11 PM EDT documented as of this encounter Care Teams Market Risk Specialist Relationship Specialty Start Date End Date Janette Posey MD [address] [place] [address] PCP - General Family Medicine 02/18/22 documented as of this encounter
--- OUTSIDE RECORDS SUMMARY | 2025-03-05 18:41 | XMS_ITS | Encounter Summary ---
Author Organization [employer] Address [address] [facility] 7[address] [place] [address] Care Team Providers Care Rehabilitation Team Lead Name Role Phone Janette Posey MD Primary Care Provider [phone] Reason for Visit * Reason Onset Date Comments Nurse Triage 01/31/2024 Encounter Details Date Type Department Care Team ([facility] st Contact Info) Description 01/31/2024 Telephone [facility] CHC MED & PEDS [address] [place] [address] Janette Posey MD [address] [place] [address] Nurse Triage Social History Tobacco Use Types Packs/Day Years [...] encounter Miscellaneous Notes * Telephone Encounter - Wing Humphrey RN - 02/01/2024 2:32 PM EDT Tc to pt regarding f/u. Pt reports she went to [facility] last night, 01/30 and an US was done that showed a cyst on the left ovary. Pt states the pelvic pain started gradually two days ago and is a 10/10 on the pain scale at the moment. Scheduled pt to see PCP on 02/01 at 3:40 pm. Pt verbalizes understanding and agreement with plan. Will scan US into chart. ED note not available at this moment. * Telephone Encounter - Mendy Jara RN - 01/31/2024 11:20 AM EDT Call to Melinda Oconnor, reports having pelvic pain 08/31. Per pt having pain lasting > 2 hours. Pt used ibuprofen. Per pt having bleeding now not part of menses. Per pt last menstrual was 2 weeks ago. Finished 1 week ago. Per pt was having severe pain with menses as well. Pt advised of disposition, agrees to seek [facility] ER now for exam. Still has IUD as method of BC. Sent to team for ER status check PRN. Protocol Used: Pelvic Pain - Female (Adult) Protocol-Based Disposition: Go to ED Now Positive Triage Question: * Severe pelvic pain and present > 1 hour * All higher-acuity triage questions were negative Care Advice Discussed: * Reassurance and Education - Mild to Moderate Pain Lasting Less Than 2 Hours * Reasons To Call Back - You become worse * Telephone Encounter - Bre Das - 01/31/2024 11:18 AM EDT Symptom: Pain - Severe Outcome: Schedule an urgent appointment (within 1 hour) or talk to a nurse or provider soon Reason: Caller denied all higher acuity questions The caller accepted this outcome Please contact pt @ [phone] Recently switch controls. documented in this encounter Plan of Treatment Upcoming Encounters Date Type Department Care Team (Late st Contact Info) Description 03/20/2025 1:15 PM EDT Procedure Visit [facility] MEDICINE [address] [place] [address] Nai Whitmore CNM [address] [place] [address] documented as of this encounter Visit Diagnoses Not on filedocumented in this encounter Additional Health Concerns Assessment Noted Time PHQ-9 Depression Total Score: 2 06/17/20 23 2:11 PM EDT documented as of this encounter Care Teams Rehabilitation Team Lead Relationship Specialty Start Date End Date Janette Posey MD [address] [place] [address] PCP - General Family Medicine 02/18/22 documented as of this encounter
--- OUTSIDE RECORDS SUMMARY | 2025-03-05 18:41 | XMS_ITS | Encounter Summary ---
Author Organization [email or web address] Address [address] [facility] [address] [place] [address] Care Team Providers Care Credentialing Manager Name Role Phone Janette Posey MD Primary Care Provider [phone] Reason for Visit * Reason Comments Gynecologic Exam Encounter Details Date Type Department Care Team ([facility] st Contact Info) Description 03/05/2025 9:45 AM EDT Office Visit [facility] MEDICINE [address] [place], [place] [phone] Nai Whitmore CNM [address] [place] [address] Abnormal uterine bleeding (Primary Dx); Cervical cancer screening; Encntr screen for infections w sexl mode of transmiss Social History Tobacco Use Types Packs/Day Years [...] AM EDT documented as of this encounter Last Filed Vital Signs Vital Sign Reading Time Taken Comments Blood Pressure 134/81 03/05/2025 9:58 AM EDT Pulse 92 03/05/2025 9:58 AM EDT Temperature 36.5 ??C (97.7 ??F) 03/05/2025 9:58 AM ED T Respiratory Rate 16 03/05/2025 9:58 AM EDT Oxygen Saturation 98% 03/05/2025 9:58 AM EDT Inhaled Oxygen Concentration - - Weight 50.7 kg (111 lb 12.8 oz) 03/05/2025 9:58 AM EDT Height 157.5 cm (5' 2 ) 03/05/2025 9:58 AM EDT Body Mass Index 20.45 03/05/2025 9:58 AM EDT documented in this encounter Progress Notes * Nai Whitmore CNM - 03/05/2025 9:45 AM EDT Subjective Patient ID: Melinda Oconnor is a 24 y.o. female who presents for AUB IUD removed and Nexplanon replaced last year. Frustrated by frequent bleeding with Nexplanon. Wouldlike to discuss removal. 1 AMAB partner x 1y, no safety concerns. Last sexually active 1 day ago. Not planning in the next year. Pap ASCUS 09/2023. Due for repeat pap which she agrees to today. Pelvic ultrasound ordered 03/2024, which needs to be scheduled. Review of Systems Constitutional: Negative for chills and fever. Gastrointestinal: Negative for diarrhea and vomiting. Genitourinary: Positive for vaginal bleeding. Negative for dyspareunia, dysuria, pelvic pain and vaginal discharge. Objective BP 134/81 (BP Location: Left arm, Patient Position: Sitting, BP Cuff Size: Adult) Pulse 92 Temp97.7 ??F (36.5 ??C) (Temporal) Resp 16 Ht 5' 2 (1.575 m) Wt 111 lb 12.8 oz (50.7 kg) LMP 02/08/2025 (Approximate) SpO2 98% BMI 20.45 kg/m?? Physical Exam Constitutional: Appearance: Normal appearance. Genitourinary: General: Normal vulva. Labia: Right: No rash, tenderness, lesion or injury. Left: No rash, tenderness, lesion or injury. Vagina: Normal. No signs of injury and foreign body. No vaginal discharge, erythema, tenderness, bleeding or lesions. Cervix: Normal. No cervical motion tenderness, discharge, friability, lesion, erythema, cervical bleeding or eversion. Uterus: Normal. Not enlarged and not tender. Adnexa: Right adnexa normal and left adnexa normal. Right: No mass, tenderness or fullness. Left: No mass, tenderness or fullness. Neurological: Mental Status: She is alert. Psychiatric: Mood and Affect: Mood normal. Behavior: Behavior normal. Assessment/Plan Diagnoses and all orders for this visit: Abnormal uterine bleeding - POCT , urine manually resulted test negative today. Bleeding largely resolved. [place] faxed ultrasound order from last year to be scheduled. Would like to return for Nexplanon removal. If not planning , advised to abstain from sex or use condoms for 5 days prior to appointment. Briefly discussed other control options. May want to get soon. We can discuss further at followup visit if she wants. Report if AUB recurs. Cervical cancer screening - Pap Smear Pap today. Repeat 1 year if normal. Encntr screen for infections w sexl mode of transmiss - STI testing add on (NG, CT, Trich) Pap based STI testing sent. documented in this encounter Plan of Treatment Upcoming Encounters Date Type Department Care Team (Late st Contact Info) Description 03/20/2025 1:15 PM EDT Procedure Visit [facility] MEDICINE [address] [place] [address] Nai Whitmore CNM [address] [place] [address] Scheduled Orders Name Type Priority Associated Diagnoses Orde r Schedule Pap Smear Pathology and Cytology Routine Cervical cancer screening Ordered: 03/05/2025 STI testing add on (NG, CT, Trich) Pathology and Cytology Routine Encntr screen for infections w sexl mode of transmiss Ordered: 03/05/2025 documented as of this encounter Procedures Procedure Name Priority Date/Time Associated Diagnosis Comments POCT , URINE Routine 03/05/2025 10:09 AM EDT Abnormal uterine bleeding documented in this encounter Results * POCT , urine manually resulted (03/05/2025 10:09 AM EDT) Preg Test, Ur Negative Negative, Indeterminate, None Detected, Invalid, Specimen unsatisfactory for evaluation, Weakly Positive QC Media Lot # [id number] Lot# Expiration Date [id number] Urine 03/05/2025 10:0 9 AM EDT Nai Whitmore CNM POINT OF CARE TEST ENTER/ EDIT ORDERABLES Final Result documented in this encounter Visit Diagnoses Diagnosis Abnormal uterine bleeding- Primary Unspecified disorder of menstruation and other abnormal bleeding from female genital tract Cervical cancer screening Screening for malignant neoplasm of the cervix Encntr screen for infections w sexl mode of transmiss documented in this encounter Additional Health Concerns Assessment Noted Time PHQ-9 Depression Total Score: 0 07/10/20 24 9:29 AM EDT documented as of this encounter Care Teams Credentialing Manager Relationship Specialty Start Date End Date Janette Posey MD [address] [place] [address] PCP - General Family Medicine 02/18/22 documented as of this encounter
--- OUTSIDE RECORDS SUMMARY | 2025-03-05 18:41 | XMS_ITS | Encounter Summary ---
Author Organization [employer] Address [address] [facility] 7t [place] [address] Care Team Providers Care Horticulture Superintendent Name Role Phone Janette Posey MD Primary Care Provider [phone] Reason for Visit * Reason Onset Date Comments Nurse Triage 03/01/2025 Encounter Details Date Type Department Care Team ([facility] st Contact Info) Description 03/01/[address] [facility] MEDICINE [address] [place] [address] Janette Posey MD [address] [place] [address] Nurse Triage Social History Tobacco Use Types [...] is your housing situation today? I have ambreenjosefina sunshine 07/05/[address] you [...] encounter Miscellaneous Notes * Telephone Encounter - Britt Barriga RN - 03/01/2025 11:25 AM EDT Called pt. She states that she has HX. of cysts on ovaries and it is causing breakthrough bleeding in between periods. Pt states that she has been bleeding x 4 weeks straight. Only slight abdominal pain. No dizziness or weakness. No clots. Bleeding through 1-3 pads per day. Pt. Does not have PAPER INSERTER. No . Protocol Used: Vaginal Bleeding - Abnormal (Adult) Protocol-Based Disposition: See in Office 03/05/25 at 945am with Nai Bernal Triage Questions: * Periods last > 7 days * Menstrual cycle < 21 days OR > 35 days, and occurs more than two cycles (2 months) this past year * Bleeding or spotting between regular periods occurs more than three cycles (3 months) this past year * All higher-acuity triage questions were negative Care Advice Discussed: * Reassurance and Education - Short or Long Menstrual Cycles * Test, When in Doubt * Iron and Anemia * Telephone Encounter - Helen Cárdenas - 03/01/2025 11:17 AM EDT Symptom: Vaginal Bleeding - Not Outcome: Schedule an urgent appointment (within 4 hours) or talk to a nurse or provider soon Reason: Started within the past 3 days (a month) The caller accepted this outcome. [phone] documented in this encounter Plan of Treatment Upcoming Encounters Date Type Department Care Team (Late st Contact Info) Description 03/20/2025 1:15 PM EDT Procedure Visit [facility] MEDICINE [address] [place] [address] Nai Whitmore CNM [address] [place] [address] documented as of this encounter Visit Diagnoses Not on filedocumented in this encounter Additional Health Concerns Assessment Noted Time PHQ-9 Depression Total Score: 0 07/10/20 24 9:29 AM EDT documented as of this encounter Care Teams Horticulture Superintendent Relationship Specialty Start Date End Date Janette Posey MD [address] [place] [address] PCP - General Family Medicine 02/18/22 documented as of this encounter
--- OUTSIDE RECORDS SUMMARY | 2025-03-05 18:41 | XMS_ITS | Encounter Summary ---
Author Organization [email or web address] Address [address] [facility] [address] [place] [address] Care Team Providers Care Logistics Team Leader Name Role Phone Janette Posey MD Primary Care Provider [phone] Reason for Visit * Reason Onset Date Comments Nurse Triage 11/07/2024 Encounter Details Date Type Department Care Team ([facility] st Contact Info) Description 11/07/2024 Telephone [facility] MEDICINE [address] [place] [address] Janette Posey MD [address] [place] [address] Nurse Triage Social History Tobacco Use Types [...] your housing situation today? I have ambreen jong 07/05/[address] you li [...] encounter Miscellaneous Notes * Telephone Encounter - Gina Thomas RN - 11/07/2024 11:13 AM EST Call to Pt to obtain specific Urgent care. [address] [place] [address] Urgent care. Given toLjin. * Telephone Encounter - iGna Tohmas RN - 11/07/2024 10:56 AM EST Triage call Pt reports sore throat for 4-5 days. Pt was seen in urgent care [facility] location either 11/04 or 11/05. Pt continues with severe sore throat, tonsils are reddned, swollen and possible white patch seen, headache and tiredness. Pt has mainly been eating soups. Pt is using coughdrops. Pt denies fever at urgent care visit temp was 98.3. Pt has been using liquid ibuprofen for pain relief. ASK apt in [facility] at 220pm today. Pt agrees with disposition. Pt is given home care advice. Insurance is verified as active prior to booking. Protocol Used: Sore Throat (Adult) Protocol-Based Disposition: See in Office or Video Visit Today Video visit not offered Positive Triage Questions: * Severe sore throat pain * Patient wants to be seen * All higher-acuity triage questions were negative Care Advice Discussed: * Reassurance and Education - Sore Throat * Sore Throat * Soft Diet * Drink Plenty of Liquids * Pain and Fever Medicines * Reasons To Call Back - Sore throat is the main symptom and it lasts longer than 48 hours - Sore throat is mild but lasts longer than 4 days - Fever lasts longer than 3 days - You become worse * Telephone Encounter - Tobias Dominguez - 11/07/2024 10:39 AM EST Symptom: Sore Throat Outcome: Transfer to a nurse or provider NOW! Reason: Struggling for each breath (severe trouble breathing) The caller accepted this outcome. Please Contacr Number:[phone] Polish documented in this encounter Plan of Treatment Upcoming Encounters Date Type Department Care Team (Late st Contact Info) Description 03/20/2025 1:15 PM EDT Procedure Visit [facility] MEDICINE [address] [place] [address] Nai Whitmore CNM [address] [place] [address] documented as of this encounter Visit Diagnoses Not on filedocumented in this encounter Additional Health Concerns Assessment Noted Time PHQ-9 Depression Total Score: 0 07/10/20 24 9:29 AM EDT documented as of this encounter Care Teams Logistics Team Leader Relationship Specialty Start Date End Date Janette Posey MD [address] [place] [address] PCP - General Family Medicine 02/18/22 documented as of this encounter
--- OUTSIDE RECORDS SUMMARY | 2025-03-05 18:42 | XMS_ITS | Clinical Summary ---
Author Organization [employer] Address [address] [facility] [address] [place] [address] Care Team Providers Care Surgical Rn Name Role Phone Janette Posey MD Primary Care Provider [phone] Allergies No known active allergies Medications etonogestrel-eluti ng (Nexplanon) 68 mg contraceptive implantIndications :Contraceptive Therapy 1 each by Implant route 1 (one) time. Active fluconazole (Diflucan) 150 MG tablet Take 1 tablet (150 mg) by mouth every 3rd (third) day. 3 tablet 4 Active Active Problems Problem Noted Date Diagnosed Date Physical exam, annual 07/20/2024 Assessment & Plan (07/20/2024 1:19 PM EDT): 23 y.o. here for annual physical exam - reviewed BMI and BP - reviewed last pap, need repeat 09/2024 due to ASCUS, +HPV IZ: needs annual influenza Recurrent streptococcal pharyngitis 07/10/2024 Assessment & Plan (07/10/2024 9:25 AM EDT): Patient with recurrent pharyngitis and R side tonsil asymmetric with erythema and R sided LAD, at this point will benefit of ENT referral, finish antibiotics. Pharyngitis 04/23/2023 Assessment & Plan (05/03/2023 11:49 AM EDT): Patient previously dx with mono with continued symptoms. Will send labs to confirm diagnosis and refer to ENT at [facility]. Send out swab for gonorrhea. Assessment & Plan (04/23/2023 10:16 AM EDT): I instructed patient to go to the lab now for mono test I will also test her for chlamydia/gonorrhea (patient is sexually active) Due to severity of symptoms and size of tonsils with exudate I will prescribe prednisone for 5 days and azithromycin Resolved Problems Problem Noted Date Diagnosed Date Resolved Date Cervical cancer screening 10/07/2023 Assessment & Plan (11/04/2023 5:36 PM EST): Will followup ASCCP guidelines for timing of pap smear -Patient was given a breve counseling of different methods of progesterone IUD and contraceptives. Therefore, patient will be scheduled appointment with [facility] [employer] [employer]. Acute vaginitis 08/06/2023 07/13/2024 Assessment & Plan (08/06/2023 11:25 AM EDT): Vaginal swab was performed at the time of visit. Will prescribe antibiotics. Allergic rhinitis 05/19/2012 07/13/2024 Asthma 05/19/2012 07/13/2024 Contact dermatitis 05/19/2012 Disruptive behavior disorder 05/19/2012 07/13/2024 Failure to thrive 05/19/2012 07/13/2024 Encounters Date Type Department Care Team Description 03/05/2025 9:45 AM EDT Office Visit [facility] MEDICINE [address] [place] [phone] Nai Whitmore CNM Abnormal uterine bleeding (Primary Dx); Cervical cancer screening; Encntr screen for infections w sexl mode of transmiss 03/05/2025 Travel 03/01/2025 Telephone [facility] MEDICINE [address] [place] [phone] Janette Posey MD Nurse Triage 02/02/2025 Population Health Risk Score Community [facility] ([facility] Department [address] [id number] Provider, Population Health Generic 01/29/2025 Telephone [facility] MEDICINE [address] [place] [address] Janette Posey MD Nurse Triage 01/19/2025 Telephone [facility] [address] [place] [address] Janette Posey MD Nurse Triage 12/15/2024 Telephone [facility] MED [facility] PEDS [address] [place] [address] Janette Poesy MD Nurse Triage 12/12/2024 Telephone [facility] MED & PEDS [address] [place] [address] Janette Posey MD Nurse Triage from Last 3 Months Immunizations Name Administration Dates Next Due DTaP 03/25/2007, 4,03/28/2003,01/24,2002 HPV 9-Valent 06/07/2017,01/09/2015 Hep A, ped/adol, 2 dose 05/08/2020,04/24/2019 Hep B, Adolescent or Pediatric 03/28/2003,2001,2002 Hib (HbOC) 12/26/2003, 3,01/24/2003,12/20 IPV 03/25/2007, 3,01/24/2003,12/20 Influenza injectable quadriv alent preservative free 09/16/2021 Influenza, IIV3, injectable 09/01/2011 MMR 05/28/2021,09/26/2003 MMRV 03/25/2007 Meningococcal MCV4P ACYW-135 12/15/2021,04/24/20 19,01/09/2015 Pfizer Covid-19 Vaccine 12+ 06/18/2021, Pneumococcal Conjugate PCV 20 07/13/2024 Pneumococcal Conjugate PCV 7 12/26/2003, 03/28/2003,01/24/2003,12/20 Tdap 05/28/2021,01/09/2015 Varicella 09/26/2003 Family History Medical History Relation Name Comments No Known Problems Father Relation Name Status Comments Father Social History Tobacco Use Types Packs/Day Years [...] Orientation Bisexual 09/21/2022 10 :17 AM EDT Last Filed Vital Signs Vital Sign Reading [...] Mass Index 20.45 03/05/2025 9:58 AM EDT Plan of Treatment Upcoming Encounters Date Type Department Care Team (Late st Contact Info) Description 03/20/2025 1:15 PM EDT Procedure Visit [facility] MEDICINE [address] [place] [address] MyrandaNai, CNM [address] [place], [place] [phone] Health Maintenance Due Date Last Done Comments Alcohol/Substance Use Screening 2014 COVID-19 Vaccine ( season) 2024 01/09/2022, 06/18/2021, 05/28/2021 Influenza Vaccine (#1) 2024 09/16/2021, 2010 Pap Smear 10/07/2024 10/07/2023 SDOH Screening 07/05/2025 07/05/2024 Depression Screening 07/10/2025 07/10/2024, 07/10/20 24 Chlamydia and Gonorrhea Screening 11/07/2025 11/07/2024, 07/10/2024, 02/02/2024, Additional history exists Family Planning (PISQ) 03/05/2026 03/05/2025 Tobacco Screening 03/05/2026 03/05/2025 DTaP/Tdap/Td Vaccines (8 - Td or Tdap) 05/28/2031 05/28/2021, 01/09/2015, 03/25/2007, Additional history exists Zoster Vaccines (1 of 2) 2052 RSV Patients and Patients Aged 60 years or older (1 - 1-dose 75+ series) 2077 Hepatitis B Vaccines Completed 03/28/2003, 2002, 2002 HIB Vaccines Completed 12/26/2003, 05/2003, 01/24/2003, Additional history exists IPV Vaccines Completed 03/25/2007, 06/23, 01/24/2003, Additional history exists HPV Vaccines Completed 06/07/2017, 01/09/2015 Hepatitis A Vaccines Completed 05/08/2020, 04/24/20 19 Meningococcal Vaccine Completed 12/15/2021 , 04/24/2019, 01/09/2015 Hepatitis C Screening Completed 07/10/2024, 023 Pneumococcal Vaccine: Pediatrics (0 to 5 Years) and At-Risk Patients (6 to 49) Years) Aged Out 07/13/2024, 12/26/2003, 03/28/2003, Additional history exists No longer eligible based on patient's age to complete this topic HIV Screening Completed 11/07/2024, 07/10/2024 RSV under 20 months Aged Out No longe r eligible based on patient's age to complete this topic Rotavirus Vaccines Aged Out No longer eligible based on patient's age to complete this topic Procedures Procedure Name Priority Date/Time Associated Diagnosis Comments POCT , URINE Routine 03/05/2025 10:09 AM EDT Abnormal uterine bleeding HIV 1/2 ANTIGEN/ANTIBODY, FOURTH GENERATION W/RFL Routine 11/07/2024 3:13 PM EST Pharyngitis, unspecified etiology CHLAMYDIA/N. GONORRHOEAE RNA, TMA, THROAT Routine 11/07/2024 2:40 PM EST Pharyngitis, unspecified etiology HEPATITIS C AB W/REFL TO HCV RNA, QN, PCR Routine 07/10/2024 9:41 AM EDT Routine screening for STI (sexually transmitted infection) PAP SMEAR Routine 10/07/2023 4:27 PM EST from Last 3 Months or Most Recently Relevant to Health Maintenance Results * POCT , urine manually resulted (03/05/2025 10:09 AM EDT) Preg Test, Ur Negative Negative, Indeterminate, None Detected, Invalid, Specimen unsatisfactory for evaluation, Weakly Positive QC Media Lot # [id number] Lot# Expiration Date ,[id number] Urine 03/05/2025 10:0 9 AM EDT Nai Whitmore CNM POINT OF CARE TEST ENTER/ EDIT ORDERABLES Final Result * HIV-1/2 Antigen and Antibodies, Fourth Generation, with Reflexes (11/07/2024 3:13 PM EST) HIV AB/AG Nonreactive Nonreactive [facility] Comment:HIV-1 p24 Ag and/or HIV-1/HIV-2 Ab not detected.A test result that is nonreactive does not exclude thepossibility of exposure to or infection with HIV-1 and/orHIV-2. Nonreactive results in this assay for individualswith prior exposure to HIV-1 and/or HIV-2 may be due toantigen and antibody levels that are below the limit ofdetection of this assay.The BIXI HIV Ag/Ab Combo assay result andsupplemental assay results should be interpreted inconjunction with the patient's clinical presentation,history and other laboratory results. If the results areinconsistent with clinical evidence, additional testing issuggested to confirm the result. Blood Venous blood specimen / Unknown 11/07/2024 3:13 PM EST 11/07/2024 5:44 PM EST us Elsa Black MD LAB BLOOD ORDERABLES Final Re sult [facility] [address] [place] [phone] * Chlamydia/N. Gonorrhoeae RNA, TMA, Throat (11/07/2024 2:40 PM EST) C. Trachomatis RNA TMA, Throat [facility] Comment:TEST NOT PERFORMEDNo suitable specimen received.Please review the testrequirements [email or web address] TEST WAS PERFORMED AT:[facility] [place] [id number] BAEZA MD N. gonorrhoeae RNA TMA, Throat [facility] Swab Structure of anterior portion of neck / Unknown 11/07/2024 2:40 PM EST 11/07/2024 5:38 PM EST Elsa Black MD LAB MICROBIOLOGY - GENERAL OR DERABLES Final Result Performing Organization Address [facility] Co de Phone Number [facility] [address] [place] [address] [phone] * Hepatitis C Antibody with Reflex to HCV, RNA, Quantitative, Real-Time PCR (07/10/2024 9:41 AM EDT) Hepatitis C Antibody Nonreactive Nonreactive [facility] Comment:Antibodies to HCV no t detected; does not exclude early acuteHCV infection. Blood Venous blood specimen / Unknown 07/10/2024 9:41 AM EDT 07/10/2024 2:19 PM EDT us Janette Posey MD LAB BLOOD ORDERABLES Final Re sult Performing Organization Address [facility] Co de Phone Number [facility] [address] [place] [address] [phone] * Pap Smear (10/07/2023 4:27 PM EST) 10/07/2023 4:27 PM EST 10/08/2023 8:00 AM EST Narrative [facility] - 11/01/2023 9:17 AM EST ----- ------- Name: Melinda Oconnor ? Age/Sex: 23/F ? : 2000 Unit#: [id number] ?? Attend Dr: Janette Posey MD ?Re10/07/23 ?Status: DEP REF ? Location: HO.[facility]NP ? Disch: ? ----- ------- SPEC : [id number] ?RECD: 10/08/23 ? STATUS: ??SOUT ? REQ NUM: [id number] ? ALFONSO: 10/07/23 ? SUBM DR: Janette Posey MD ? ENTERED: ??10/08/23 ?SP TYPE: Pap Smr ?OTHR : ? ORDERED: ??Pap Smear, PAP path review ? Interpretation ?? General Category: ?Epithelial cell abnormality. ?? Adequacy: ? Endocervical component present. ?? Interpretation: ? Atypical squamous cells of undetermined significance. ? HPV mRNA E6/E7: ?DETECTED ? This assay detects E6/E7 viral messenger RNA (mRNA) from 14 high-risk HPV types (16, 18, ?? 31, 33, 35, 39, 45, 51, 52, 56, 58, 59, 66, 68) ? HPV Type 16 RNA: ?Not Detected ?? HPV Type 18/45 RNA: ? Not Detected ? HPV testing performed by [facility], [place], [place]. ??See reference laboratory ?? portion of the EMR for entire report. ?Clinical Information LMP: Unknown date Previous PAP test: Unknown date/findings ? Material Received ?? ThinPrep-Vaginal/Cervical ----- ------- Signed (signature on file) Sakshi Weeks MD 11/01/23916 ? ----- ------- ? END OF REPORT ? us Janette Posey MD LAB CYTOLOGY ORDERABLES Final Result [facility] [address] [place] [phone] from Last 3 Months or Most Recently Relevant to Health Maintenance [place] [address] [place] [address] C3 Care Teams Surgical Rn Relationship Specialty Start Date End Date Janette Posey MD [address] [place] [phone] PCP - General Family Medicine 02/18/22
[2025-03-07 19:43] LABS: C. trachomatis RNA TMA NOT DETECTED (NOT DETECTED); N. gonorrhoeae RNA TMA NOT DETECTED (NOT DETECTED)
[2025-03-08 12:05] LABS: Trichomonas (NAAT) NOT DETECTED
== END 2025-03-05 18:09 | disposition home or self-care (01) ==
LOC: HO.HHCLNP 18:08
PROVIDERS: Visit Provider Advanced Practice Midwife
DX: Z12.4 Encounter for screening for malignant neoplasm of cervix (principal); Z11.3 Encounter for screening for infections with a predominantly sexual mode of transmission; Z87.42 Personal history of other diseases of the female genital tract
CPT/HCPCS: 87491; 87591; 87661; 88175

== ENCOUNTER 2025-03-28 15:11 | Outpatient (REF) | payer MEDICAID, SELFPAY ==
--- NOTE | ~2025-03-28 | US_ITS ---
CLINICAL HISTORY: COMPLEX CYST OF RIGHT OVARY --- Additional Notes or Special Instructions: 23 YO WIT H A HX OF RT SIDED COMPLEX CYST Transvaginal pelvic ultrasound Bilateral ovarian Doppler studies Comparison: 03/20/2024 Findings: Uterus 8.5 x 3.7 x 4.9 cm. Endometrium 2 mm. No significant free fluid in cul-de-sac. Right ovary 5.0 x 3.7 x 4.3 cm. 4.2 x 3.1 cm cyst with wall thickening. Small mural cyst noted as well. Left ovary 3.6 x 1.6 x 1.8 cm. No significant focal abnormality. Arterial and venous color and spectral Doppler assessment of both ovaries. There is normal flow to both ovaries without evidence for ovarian torsion. Impression: Complex right ovarian cyst as above Recommend follow-up in 1-2 months This document has been electronically signed by: Tucker Linton MD on 03/28/2025 18:22:27
--- OUTSIDE RECORDS SUMMARY | 2025-03-28 16:10 | XMS_ITS | Encounter Summary ---
Author Organization [employer] Address [address] [facility] [address] [place] [address] Care Team Providers Care Food Safety Scientist Name Role Phone Janette Posey MD Primary Care Provider [phone] Reason for Visit * Reason Onset Date Comments Nurse Triage 11/07/2024 Encounter Details Date Type Department Care Team ([facility] Contact Info) Description 11/07/2024 Telephone [facility] MEDICINE [address] [place] [address] Janette Posey MD [address] [place] [phone] Nurse Triage Social History Tobacco Use Types [...] to Pt to obtain specific Urgent care. [address] [place] [address] Urgent care. Given Eun. * Telephone Encounter - Gina Thomas RN - 11/07/2024 10:56 AM EST Triage call Pt reports sore throat for 4-5 days. Pt was seen in urgent care [facility] location either 11/04 or 11/05. Pt continues with severe sore throat, tonsils are reddned, swollen and possible white patch seen, headache and tiredness. Pt has mainly been eating soups. Pt is using coughdrops. Pt denies fever at urgent care visit temp was 98.3. Pt has been using liquid ibuprofen for pain relief. ASK apt in [facility] at 220pm today. Pt agrees [...] The caller accepted this outcome. Please Contacr Number:[phone] Norwegian documented in this encounter Plan of Treatment Not on file documented as of this encounter Visit Diagnoses Not on filedocumented in this encounter Additional Health Concerns Assessment Noted Time PHQ-9 Depression Total Score: 0 07/10/20 24 9:29 AM EDT documented as of this encounter Care Teams Food Safety Scientist Relationship Specialty Start Date End Date Janette Posey MD [address] [place] [address] PCP - General Family Medicine 02/18/22 documented as of this encounter
--- OUTSIDE RECORDS SUMMARY | 2025-03-28 16:10 | XMS_ITS | Encounter Summary ---
Author Organization [email or web address] Address [address] [facility] 7t [place] [address] Care Team Providers Care Drywall Carrier Name Role Phone Janette Posey MD Primary Care Provider [phone] Reason for Visit * Reason Onset Date Comments Letter for School/Work 11/19/2023 Encounter Details Date Type Department Care Team ([facility] Contact Info) Description 11/19/2023 Telephone [facility] [address] [place], [place] [phone] Janette Posey MD [address] [place] [address] Letter for School/Work Social History Tobacco Use [...] encounter Miscellaneous Notes * Telephone Encounter - [place] - 11/19/2023 9:17 AM EST Tc from pt stating they need excuse letter from work regarding ER visit. Any questions please contact pt at [phone]. documented in this encounter Plan of Treatment Not on file documented as of this encounter Visit Diagnoses Not on filedocumented in this encounter Additional Health Concerns Assessment Noted Time PHQ-9 Depression Total Score: 2 06/17/20 23 2:11 PM EDT documented as of this encounter Care Teams Drywall Carrier Relationship Specialty Start Date End Date Jnaette Posey MD [address] [place] [address] PCP - General Family Medicine 02/18/22 documented as of this encounter
--- OUTSIDE RECORDS SUMMARY | 2025-03-28 16:10 | XMS_ITS | Clinical Summary ---
Author Organization [employer] Address [address] [facility] 7t [place] [address] Care Team Providers Care Informatics Consultant Name Role Phone Janette Posey MD Primary Care Provider [phone] Allergies No known active allergies Medications * This document contains information received from the source organization and may not represent a complete record from that organization. etonogestrel-eluti ng (Nexplanon) 68 mg contraceptive implantIndications :Contraceptive Therapy 1 each by Implant route 1 (one) time. Active fluconazole (Diflucan) 150 MG tablet Take 1 tablet (150 mg) by mouth every 3rd (third) day. 3 tablet 4 Active Active Problems Problem Noted Date Diagnosed Date Generalized anxiety disorder 03/20/2025 Assessment & Plan (03/20/2025 2:56 PM EDT): During IBH Consult Melinda presenting with excessive worry/anxiety, difficulty controlling worry, anxiety/worry associated to restlessness and/or feeling keyed-up/On edge , easily fatigued , difficulty concentrating and/or mind going blank , irritability, muscle tension , and sleep disturbance difficulty falling asleep, Fear , and sense of dread ; for a period of 18+ mo, for most or all symptoms in the context of work settings and untreated chronic anxiety. Pt reports feeling emotionally overwhelmed due to experiencing anxiety on the daily basis. She tries managing sxs by doing house chores. Pt reports always fearing the worst scenario that could happen. Positive support received by her partner. We explored coping strategies during today's session as patient was experiencing some anxiety. Pt will be referred with Jaden Albrecht for medication management and therapy services. She will also reach out to [facility] for additional support. Provided contact information. Physical exam, annual 07/20/2024 Assessment & Plan [...] confirm diagnosis and refer to ENT at [facility]. Send out swab for gonorrhea. Assessment [...] Therefore, patient will be scheduled appointment with Tobacco Curer. Acute vaginitis 08/06/2023 07/13/2024 Assessment & Plan (08/06/2023 11:25 AM EDT): Vaginal swab was performed at the time of visit. Will prescribe antibiotics. 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 Date Type Department Care Team Description 03/20/2025 1:15 PM EDT Procedure Visit [address] [address] Nai Chambers CNM Nexplanon removal (Primary Dx) 03/20/2025 Orders Only [address] [address] Carly Glez Generalized anxiety disorder (Primary Dx) 03/20/2025 Travel 03/14/[address] [address] Nai Chambers CNM Results 03/05/2025 9:45 AM EDT Office Visit [address] [address] Nai Chambers CNM Abnormal uterine bleeding (Primary Dx); Cervical cancer screening; Encntr screen for infections w sexl mode of transmiss 03/05/2025 Travel 03/01/[address] [address] Janette Posey MD Nurse Triage 02/02/2025 Population Health Risk Score [facility] (C3) Department [address] [place] [phone] Provider, Population Health Generic 01/29/[address] [address] Janette Posey MD Nurse Triage 01/19/2025 Telephone [facility] & PEDS [address] [place], [place] [phone] Janette Posey MD Nurse Triage from Last [...] your housing situation today? I have ambreen sing 07/05/[address] you li [...] Sign Reading Time Taken Comments Blood Pressure 127/84 03/20/2025 1:21 PM EDT Pulse 90 03/20/2025 1:21 PM EDT Temperature 36.6 ??C (97.9 ??F) 03/20/2025 1:21 PM ED T Respiratory Rate 16 03/20/2025 1:21 PM EDT Oxygen Saturation 99% 03/20/2025 1:21 PM EDT Inhaled Oxygen Concentration - - Weight 51.4 kg (113 lb 6.4 oz) 03/20/2025 1:21 P M EDT Height 157.5 cm (5' 2 ) 03/20/2025 1:21 PM EDT Body Mass Index 20.74 03/20/2025 1:21 PM EDT Plan of Treatment Health Maintenance Due Date Last Done Comments Alcohol/Substance Use Screening 2014 COVID-19 Vaccine ( season) 2024 01/09/2022, 06/18/2021, 05/28/2021 Influenza Vaccine (#1) 2024 09/16/2021, 2010 SDOH Screening 07/05/2025 07/05/2024 Depression Screening 07/10/2025 07/10/2024, 07/10/20 24 Chlamydia and Gonorrhea Screening 03/05/2026 03/05/2025, 11/07/2024, 07/10/2024, Additional history exists Pap Smear 03/05/2026 03/05/2025, 10/07/2023 Family Planning (PISQ) 03/20/2026 03/20/2025 Tobacco Screening 03/20/2026 03/20/2025 DTaP/Tdap/Td Vaccines (8 - Td or Tdap) [...] Procedure Name Priority Date/Time Associated Diagnosis Comments VA REMOVAL NON-BIODEGRADABLE DRUG DELIVERY IMPLANT Routine 03/20/2025 1:25 PM EDT Nexplanon removal CHLAMYDIA/N. GONORRHOEAE AND T. VAGINALIS RNA, QUAL,TMA Routine 03/05/2025 10:10 AM EDT Encntr screen for infections w sexl mode of transmiss PAP SMEAR Routine 03/05/2025 10:10 AM EDT Cervical cancer screening POCT , URINE Routine 03/05/2025 10:09 AM EDT Abnormal uterine bleeding HIV 1/2 ANTIGEN/ANTIBODY, FOURTH GENERATION W/RFL Routine 11/07/2024 3:13 PM EST Pharyngitis, unspecified etiology HEPATITIS C AB W/REFL TO HCV RNA, QN, PCR Routine 07/10/2024 9:41 AM EDT Routine screening for STI (sexually transmitted infection) from Last 3 Months or Most Recently Relevant to Health Maintenance Results * VA REMOVAL NON-BIODEGRADABLE DRUG DELIVERY IMPLANT (03/20/2025 1:25 PM EDT) Nai Escobar CNM - 03/20/2025 1:25 PM EDT Nai Chambers CNM ? 03/20/2025 ??1:47 PM Insertion/Removal of Contraceptive Capsule Date/Time: 03/20/2025 1:25 PM Performed by: Nai Chambers CNM Authorized by: Nai Chambers CNM ?? Confirmed correct patient, procedure, site, and patient consented: Yes ?? Participating Staff: ??Nai Chambers CNM Consent: ??Consent obtained: ??Verbal and written ??Consent given by: ??Patient ??Procedural risks and benefits discussed: Yes ?Patient questions answered: yes ?Patient agrees, verbalizes understanding, and wants to proceed: yes ?Educational handouts given: yes ?Instructions and paperwork completed: yes ?? Indication: ??Indication: presence of non-biodegradable drug delivery implant ?? Pre-procedure: ??Pre-procedure timeout performed: yes ?Prepped with: povidone-iodine ?Local anesthetic: 2ml 2% lidocaine. ??The site was cleaned and prepped in a sterile fashion: yes ?? Procedure: ??Procedure: ??Removal ??Small stab incision was made in arm: yes ?Left/right: ??Left ??Preloaded contraceptive capsule trocar was placed subdermally: yes ?Visualization of implant was obtained: yes ?Contraceptive capsule was inserted and trocar removed: yes ?Visualization of notch in stylet and palpation of device: yes ?Palpation confirms placement by provider and patient: yes ?Site was closed with steri-strips and pressure bandage applied: yes ?? Nai Chambers CNM IN CLINIC/BEDSIDE ORDERAB LES Final Result * STI testing add on (NG, CT, Trich) (03/05/2025 10:10 AM EDT) Trichomonas (NAAT) NOT DETECTED [facility] Comment:REFERENCE RANGE: NOT DETECTEDFor additional information, please refer tohttp://[place].SiSense/faq/Trichomonastma(This link is being provided for informational/educational purposes only.)The analytical performance characteristics of thisassay, when used to test SurePath(TM) specimens have beendetermined by [employer]. The modifications havenot been cleared or approved by the FDA. This assay hasbeen validated pursuant to the CLIA regulations and isused for clinical purposes.For additional information, please refer tohttps://[place].SiSense/faq/NVN535(This link is being provided for information/educational purposes only.)THIS TEST PERFORMED AT:[facility] [address] [phone] DIRECTOR: PAUL BAEZA MD CTNG Ref Lab NOT DETECTED NOT DETECTED [facility] NG Ref Lab NOT DETECTED NOT DETECTED [facility] ThinPrep?? vial Cervix uteri structure / Unknown 03/05/2025 10:10 AM EDT 03/06/2025 11:11 AM EDT Narrative [facility] - 03/08/2025 12:05 PM EDT Collection Date: [id number] by: CLARKE Flores: Cervix Nai Chambers CNM LAB CYTOLOGY ORDERABLES F inal Result [facility] [address] [place] [address] [phone] * Pap Smear (03/05/2025 10:10 AM EDT) Swab Cervix uteri structure / Unknown 03/05/2025 10:10 AM EDT 03/06/2025 11:11 AM EDT Narrative [facility] - 03/08/2025 9:26 AM EDT ----- ------- Name: Melinda Oconnor ? Age/Sex: 24/F ? : 2000 Unit#: [id number] ?? Attend Dr: NAI CHAMBERS [facility] ?Re03/05/25 ?Status: DEP REF ? Location: HO.HHCLNP ? Disch: ? ----- ------- SPEC : [id number] ? RECD: 03/06/25-1111 ? STATUS: ??SOUT ? REQ NUM: [id number] ? ALFONSO: 03/05/25-1010 ? SUBM DR: NAI CHAMBERS CNM ? ENTERED: ??03/06/25-1133 ?SP TYPE: Pap Smr ?OTHR : ? ORDERED: ??Pap Smear ? Interpretation ?? Satisfactory for evaluation. ?? Negative for intraepithelial lesion or malignancy. ?? Coccobacilli consistent with shift in vaginal ronny. ?Clinical Information LMP: Unknown date Previous PAP test: 09/2023, abnormal Other surgery: Implantable control ? Material Received ?? ThinPrep-Cervical ----- ------- Signed (signature on file) ALENA Hewitt (ASCP) 03/08/25 1686 ? ----- ------- ? END OF REPORT ? Nai Chambers [facility] LAB CYTOLOGY ORDERABLES F inal Result [facility] [address] [place] [address] [phone] * POCT , urine manually resulted (03/05/2025 10:09 AM EDT) Pathologist [facility] Preg Test, Ur Negative Negative, Indeterminate, None Detected, Invalid, Specimen unsatisfactory for evaluation, Weakly Positive QC Media Lot # [id number] Lot# Expiration Date [id number] Urine 03/05/2025 10:0 9 AM EDT Nai Chambers [facility] POINT OF CARE TEST ENTER/ EDIT ORDERABLES Final Result * HIV-1/2 Antigen and Antibodies, Fourth Generation, with Reflexes (11/07/2024 3:13 PM EST) [facility] HIV AB/AG Nonreactive Nonreactive [facility] Comment:HIV-1 p24 Ag and/or HIV-1/HIV-2 Ab not detected.A test result that is nonreactive does not exclude thepossibility of exposure to or infection with HIV-1 and/orHIV-2. Nonreactive results in this assay for individualswith prior exposure to HIV-1 and/or HIV-2 may be due toantigen and antibody levels that are below the limit ofdetection of this assay.The [employer] HIV Ag/Ab Combo assay result andsupplemental assay results should be interpreted inconjunction with the patient's clinical presentation,history and other laboratory results. If the results areinconsistent with clinical evidence, additional testing issuggested to confirm the result. Blood Venous blood specimen / Unknown 11/07/2024 3:13 PM EST 11/07/2024 5:44 PM EST us Elsa Black MD LAB BLOOD ORDERABLES Final Re sult Performing Organization Address [facility] Co de Phone Number [facility] [address] [place] [address] [phone] * Hepatitis C Antibody with Reflex to HCV, RNA, Quantitative, Real-Time PCR (07/10/2024 9:41 AM EDT) Hepatitis C Antibody Nonreactive Nonreactive [facility] Comment:Antibodies to HCV no t detected; does not exclude early acuteHCV infection. Blood Venous blood specimen / Unknown 07/10/2024 9:41 AM EDT 07/10/2024 2:19 PM EDT us Janette Posey MD LAB BLOOD ORDERABLES Final Re sult Performing Organization Address [facility] Co de Phone Number [facility] [address] [place] [address] [phone] from Last 3 Months or Most Recently Relevant to Health Maintenance Insurance , [address] [address] [facility] C3 Care Teams Informatics Consultant Relationship Specialty Start Date End Date Janette Posey MD [address] [place] [phone] PCP - General Family Medicine 02/18/22
--- OUTSIDE RECORDS SUMMARY | 2025-03-28 16:10 | XMS_ITS | Data Portability ---
Author Organization [place] - [facility], Allergy Address [address] [facility] [address] [place] [address] Care Team Providers Care Contact Printer Dry Film Name Role Phone KING SALAZAR Primary Care Provider Assessment No assessment recorded. Plan of Treatment [...] Recorded Time Recurrent acute streptococc al tonsillitis [id number] 9109 Active 2024 AILEEN Martinez MD [address] [place] [address], [phone], [facility] - [facility] 5 11:52:48 Chronic tonsillitis 13478957 Active 2024 AILEEN Martinez MD [address] [place] [address], [phone], [facility] - [facility] 5 11:58:23 Problem Notes None recorded. Procedures Surgical History Date Name Laterality Status Provider Name and Address Organization Details Recorded Time 12/26/19 25 tonsillectomy completed AILEEN HANLEY MD [address], [phone], [place] - [facility] 12/26/2024 14:35:25 12/26/19 25 TONSILLECTOMY (SURG) completed Jareth Rice [place] - [facility] 12/26/2024 16:01:27 Imaging Results None recorded. Procedure [...] Updated DateTime 12/19/2024 157.48 cm 19.2 kg/m2 76235.2 g Marc Balderrama [place] - [facility] 12/19/2024 11:52:23 Social History None recorded. Functional Status None recorded. Mental Status None recorded. Family History Nothing Reported. Medical History No medical history recorded. Gynecological HistoryNo gynecological history recorded. Obstetrics History GPAL:G 0 P 0 0 0 0 Past Encounters Encounter ID Performer Location Encounter Start Date Encounter Closed Date Diagnosis/Indication Diagnosis SNOMED-CT Code Diagnosis ICD10 Code Diagnosis Note [id number] AILEEN HANLEY MD [facility] [address] [place] [address] 12/19/2024 11:28:14 12/19/2024 11:57:48 Recurrent acute streptococcal tonsillitis [id number] J03.01 The patient has recurrent strep tonsilliti [...] Recorded Advance Directives Directive None Recorded Payers Insurance Date Sequence Insurance Name Policy Number Policy Soto Covered Member ID Soto Member ID Guarantor Name 12/26/2024 1 [place] [facility] Melinda Oconnor [id number] Miley Oconnor Notes Date Note Type Note [...] She does not snore. AILEEN HANLEY MD [address] [place] [address], [place], [phone], [facility] - [facility] 12/19/2024 12:01:03 OBGyn Episode No OBEpisode recorded.
--- OUTSIDE RECORDS SUMMARY | 2025-03-28 16:10 | XMS_ITS | Encounter Summary ---
Author Organization [employer] Address [address] [facility] 7t [place] [address] Care Team Providers Care Hairspring Studder Name Role Phone Janette Posey MD Primary Care Provider [phone] Reason for Visit * Reason Onset Date Comments Nurse Triage 01/31/2024 Encounter Details Date Type Department Care Team ([facility] st Contact Info) Description 01/31/2024 Telephone [facility] MED [facility] PEDS [address] [place], [place] [phone] Janette Posey MD [address] [place] [address] Nurse Triage Social History Tobacco Use Types [...] regarding f/u. Pt reports she went to [facility] last night, 01/30 and an US was [...] Pt advised of disposition, agrees to seek [facility] now for exam. Still has IUD [...] accepted this outcome Please contact pt @ [phone] Recently switch controls. documented in this encounter Plan of Treatment Not on file documented as of this encounter Visit Diagnoses Not on filedocumented in this encounter Additional Health Concerns Assessment Noted Time PHQ-9 Depression Total Score: 2 06/17/20 23 2:11 PM EDT documented as of this encounter Care Teams Hairspring Studder Relationship Specialty Start Date End Date Janette Posey MD [address] [place] [phone] PCP - General Family Medicine 02/18/22 documented as of this encounter
--- OUTSIDE RECORDS SUMMARY | 2025-03-28 16:10 | XMS_ITS | Encounter Summary ---
Author Organization [employer] Address [address] [facility] 7t [place] [address] Care Team Providers Care Pari Mutuel Ticket Cashier Name Role Phone Janette Posey MD Primary Care Provider [phone] Reason for Visit * Reason Onset Date Comments Appointment Request 09/23/2023 Encounter Details Date Type Department Care Team ([facility] Contact Info) Description 09/23/2023 Telephone [facility] & PEDS [address] [place], [place] [phone] Janette Posey MD [address] [place] [address] Appointment Request Social History Tobacco Use Types [...] from pt requesting a Pap Smear appt Master Yacht attempted to schedule no Pap Smear slots available. documented in this encounter Plan of Treatment Not on file documented as of this encounter Visit Diagnoses Not on filedocumented in this encounter Additional Health Concerns Assessment Noted Time PHQ-9 Depression Total Score: 2 06/17/20 23 2:11 PM EDT documented as of this encounter Care Teams Pari Mutuel Ticket Cashier Relationship Specialty Start Date End Date Janette Posey MD [address] [place] [address] PCP - General Family Medicine 02/18/22 documented as of this encounter
--- OUTSIDE RECORDS SUMMARY | 2025-03-28 16:10 | XMS_ITS | Encounter Summary ---
Author Organization [employer] Address [address] [facility] 7t [place] [address] Care Team Providers Care Throw Out Clerk Name Role Phone Janette Posey MD Primary Care Provider [phone] Reason for Referral * Therapy (Urgent) - Authorized Specialty Diagnoses / Procedures Referred By Neil pittman Referred To Contact Behavioral Health Diagnoses Generalized anxiety disorder Carly Glez [address] [place] [address] Phone: tel: fax: Referral ID Status Reason Start Date Expiration Date Visits Requested Visits Authorized [id number] Authorized Specialty Services Required 03/20/2025 03/20/2026 1 1 Encounter Details Date Type Department Care Team (Late st Contact Info) Description 03/20/2025 Orders Only [facility] [address] [place], [place] [phone] Carly Glez [address] [place], [place] [phone] Generalized anxiety disorder (Primary Dx) Social History Tobacco Use Types Packs/Day Years [...] as of this encounter Plan of Treatment Scheduled Referrals Name Type Priority Associated Diagnoses Order Schedule Referral to Behavioral Health Outpatient Referral Urgent Generalized anxiety disorder Expected: 03/20/2025 (Approximate), Expires: 03/20/2026 documented as of this encounter Visit Diagnoses Diagnosis Generalized anxiety disorder- Primary documented in this encounter Additional Health Concerns Assessment Noted Time PHQ-9 Depression Total Score: 0 07/10/20 24 9:29 AM EDT documented as of this encounter Care Teams Throw Out Clerk Relationship Specialty Start Date End Date Janette Posey MD [address] [place] [address] PCP - General Family Medicine 02/18/22 documented as of this encounter
== END 2025-03-28 15:12 | disposition home or self-care (01) ==
LOC: HO.US 15:11
PROVIDERS: PCP Family Medicine; Visit Provider Family Medicine
DX: N83.291 Other ovarian cyst, right side (principal)
CPT/HCPCS: 76830; 76856

== ENCOUNTER → 2025-03-28 15:13 | Outpatient (BNV) | payer MEDICAID, SELFPAY | PROVIDERS: PCP Family Medicine; Visit Provider Radiology Diagnostic Radiology | DX: N83.291 Other ovarian cyst, right side (principal) | CPT/HCPCS: 76830; 76856 ==